=== PATIENT | female | born 1965 | race Asian ===

== ENCOUNTER 2018-01-01 17:05 | Emergency (ER) | payer OTHER, SELFPAY ==
[2018-01-01 17:08] VITALS: BP 111/77; PULSE 82; RESP 16; TEMP 36.5; O2SAT 100; BMI 26.7
--- NOTE | 2018-01-01 17:30 | ED.UPPEXIN ---
HPI - Extremity Injury (Upper) <BISI Merritt - Last Filed: 01/01/18 21:37> General Chief Complaint: Extremity Injury, Upper Stated Complaint: tingling in her fingers,headaches Time Seen by Provider: 01/01/18 17:30 History of Present Illness HPI narrative: 52-year-old female here for complaint of having occasional tingling to bilateral hands and some discomfort of long the knuckles of both hands for the last couple of months. She also reports that she has had. Were she felt like she had some shortness of breath. She denies having any chest pain. She does report having occasional headache for the last 3 months as well she says the headache goes from the base of the skull forward up to the forehead area and feels like a squeezing type of pain. She denies any head trauma. No fevers no chills. No nausea or vomiting. She does report that she has been under increased stress as her mother is moving to the [facility] and that she has been feeling anxious. She denies any relievers or stressors of her symptoms.. Related Data Home Medications Medication Instructions Recorded Confirmed CA PANTOTHENATE/FOLIC ACID/VIT 1 tab PO QDAY #0 12/23/12 (MULTIVITAMIN) Allergies Allergy/AdvReac Type Severity Reaction Status Date / Time From VICODIN Allergy Mild RASH Uncoded 01/01/18 17:21 Review of Systems <BISI Merritt - Last Filed: 01/01/18 21:37> Constitutional Denies chills, Denies fever(s), Denies lethargy and Denies weakness Eyes Denies change in vision, Denies eye discharge, Denies irritation and Denies loss of vision ENT Ears, Nose, Mouth, and Throat: Denies change in voice and Denies sore throat Cardiovascular Denies chest pain, Denies irregular heart rhythm, Denies lightheadedness, Denies palpitations, Reports dyspnea and Denies orthopnea Respiratory Reports dyspnea Gastrointestinal Gastrointestinal: Denies abdominal pain, Denies change in bowel habits, Denies diarrhea, Denies nausea and Denies vomiting Genitourinary Denies hematuria, Denies flank pain, Denies urinary incontinence and Denies urinary urgency Musculoskeletal Comments: Tingling to bilateral hands with erythema across dorsal aspects of MCP joints Integumentary/Breasts Denies pruritus, Denies erythema, Denies rash and Denies wounds Neurologic Denies confusion, Denies loss of vision and Denies weakness Psychiatric Denies anxiety, Denies confusion, Denies depression, Denies homicidal ideation and Denies suicidal ideation Endocrine Denies palpitations Exam <BISI Merritt - Last Filed: 01/01/18 21:37> Initial Vital Signs Initial Vital Signs: Vital Signs Temperature 97.7 F 01/01/18 17:08 Pulse Rate 82 01/01/18 17:08 Respiratory Rate 16 01/01/18 17:08 Blood Pressure 111/77 01/01/18 17:08 Pulse Oximetry 100 01/01/18 17:08 Const General: cooperative and well developed Nutritional Appearance: well nourished Orientation: alert, awake, oriented x3 and not confused [facility] Mouth: oral mucosae normal, oropharynx normal and moist mucous membranes Eyes Conjunctivae: conjunctivae normal Sclera: sclerae normal Pupils: PERRL EOM: EOM intact bilaterally Neck Neck: normal visual inspection, trachea midline, No lymphadenopathy, No midline deformity and No JVD Lymphatic: No lymphedema Resp Effort & Inspection: normal respiratory effort, able to speak in complete sentences, no respiratory distress and no use of accessory muscles Auscultation: clear to auscultation bilaterally, no rales, no rhonchi and no wheezes Cardio Rate: regular rate Rhythm: regular rhythm Heart Sounds: no click, no gallops, no murmurs and no rubs Pulses: normal peripheral pulses Skin General: No jaundice and No petechiae Extrem Other: Dry skin to bilateral hands with erythema over the dorsal aspect of the and CP joints bilaterally. Distal sensation is intact. Full range of motion. Distal pulses are intact. <Gil Akhtar DO - Last Filed: 01/01/18 22:18> Initial Vital Signs Initial Vital Signs: Vital Signs Temperature 97.7 F 01/01/18 17:08 Pulse Rate 82 01/01/18 17:08 Respiratory Rate 16 01/01/18 17:08 Blood Pressure 111/77 01/01/18 17:08 Pulse Oximetry 100 01/01/18 17:08 Course <BISI Merritt - Last Filed: 01/01/18 21:37> Orders Ordered: ED Orders 01/01/18 17:38 EKG-12 Lead Stat 01/01/18 17:44 EKG-12 Lead Stat 01/01/18 18:31 XR chest 1V Stat 01/01/18 18:53 CT head/brain wo con Stat 01/01/18 19:05 Complete Blood Count AUTO DIFF Stat Comprehensive Metabolic Panel Stat Troponin with CK Cardiac Panel Stat Discontinued Medications Acetaminophen (Tylenol) 650 mg PO NOW ONE Stop: 01/01/18 18:42 Last Admin: 01/01/18 18:44 Dose: 650 mg Azithromycin (Zithromax) 1,000 mg PO NOW ONE Stop: 01/01/18 18:25 Last Admin: 01/01/18 18:28 Dose: Ceftriaxone Sodium (Rocephin) 250 mg IM NOW ONE Stop: 01/01/18 18:25 Last Admin: 01/01/18 18:28 Dose: Vital Signs - 8 hr 01/01/18 17:08 01/01/18 20:21 Temperature 97.7 F Pulse Rate 82 78 Respiratory Rate 16 15 Blood Pressure 111/77 Blood Pressure [Right Arm] 121/72 H Pulse Oximetry 100 100 <Gil Akhtar DO - Last Filed: 01/01/18 22:18> Orders Ordered: ED Orders 01/01/18 17:38 EKG-12 Lead Stat 01/01/18 17:44 EKG-12 Lead Stat 01/01/18 18:31 XR chest 1V Stat 01/01/18 18:53 CT head/brain wo con Stat 01/01/18 19:05 Complete Blood Count AUTO DIFF Stat Comprehensive Metabolic Panel Stat Troponin with CK Cardiac Panel Stat Discontinued Medications Acetaminophen (Tylenol) 650 mg PO NOW ONE Stop: 01/01/18 18:42 Last Admin: 01/01/18 18:44 Dose: 650 mg Azithromycin (Zithromax) 1,000 mg PO NOW ONE Stop: 01/01/18 18:25 Last Admin: 01/01/18 18:28 Dose: Ceftriaxone Sodium (Rocephin) 250 mg IM NOW ONE Stop: 01/01/18 18:25 Last Admin: 01/01/18 18:28 Dose: Vital Signs - 8 hr 01/01/18 17:08 01/01/18 20:21 Temperature 97.7 F Pulse Rate 82 78 Respiratory Rate 16 15 Blood Pressure 111/77 Blood Pressure [Right Arm] 121/72 H Pulse Oximetry 100 100 MDM - Extremity Injury (Upper) <BISI Merritt - Last Filed: 01/01/18 21:37> Lab Data Result diagrams: 01/01/18 19:05 01/01/18 19:05 Lab Results 01/01/18 01/01/18 Range/Units 19:05 19:05 WBC 7.3 (4.5-11.0) X10^3/uL RBC 5.02 (4.0-5.2) X10^6/uL Hgb 14.6 (12.0-16.0) g/dL Hct 42.7 (36-46) % MCV 85.2 (80-100) fL MCH 29.0 (26-34) PG MCHC 34.1 (30-36) % RDW 14.1 (11.6-14.8) % Plt Count 339 (150-400) X10^3/uL Neut % (Auto) 50.2 (50-75) % Lymph % (Auto) 36.5 (25-40) % Traverse % (Auto) 9.3 (3-14) % Eos % (Auto) 3.2 (2-4) % Baso % (Auto) 0.8 (0-2) % Neut # (Auto) 3700 (4965-2252) /uL Sodium 145 (137-145) mmol/L Potassium 4.1 (3.4-5.1) mmol/L Chloride 101 (98-107) mmol/L Carbon Dioxide 32 (22-32) mmol/L BUN 13 (7-17) mg/dL Creatinine 0.60 (0.52-1.04) mg/dL Estimated GFR > 60.0 (>60) mL/min BUN/Creatinine Ratio 21.7 (6-22) Glucose 110 H (70-100) mg/dL Calcium 9.7 (8.4-10.2) mg/dL Total Bilirubin 0.7 (0.2-1.3) mg/dL AST 33 (14-36) IU/L ALT 19 (9-52) IU/L Alkaline Phosphatase 67 (38-126) U/L Total Creatine Kinase 92 (30-135) U/L Troponin I < 0.012 (0.01-0.034) ng/mL Total Protein 8.1 (6.3-8.2) g/dL Albumin 4.6 (3.5-5.0) g/dL Globulin 3.5 (1.7-4.1) g/dL Albumin/Globulin Ratio 1.3 (1.0-2.8) Imaging Data Chest x-ray: Radiologist's impression: PROCEDURE: XR CHEST 1V INDICATIONS: Occasional Shortness of breath TECHNIQUE: One view of the chest was acquired. COMPARISON: None. FINDINGS: Surgical changes and devices: None. Lungs and pleura: No pleural effusions or pneumothorax. Lungs are clear. Mediastinum: Mediastinal contours appear normal. Heart size is normal. Bones and chest wall: No suspicious bony lesions. Overlying soft tissues appear unremarkable. Lateral downsloping appearance of the acromion bilaterally IMPRESSION: No acute disease. Dictated by: Timothy Murphy M.D. on 01/01/2018 at 18:59 Approved by: Timtohy Murphy M.D. on 01/01/2018 at 19:00 CT scan - head: Radiologist's impression: PROCEDURE: CT HEAD/BRAIN WO CON INDICATIONS: Headache on and off for the last 2- 3 months TECHNIQUE: Noncontrast 4.5 mm thick angled axial sections acquired from the foramen magnum to the vertex, with coronal and sagittal reformats. For radiation dose reduction, the following was used: automated exposure control, adjustment of mA and/or kV according to patient size. COMPARISON: None. FINDINGS: Image quality: Excellent. CSF spaces: Basal cisterns are patent. No extra-axial fluid collections. Ventricles are normal in size and shape. Brain: No midline shift. No intracranial masses or hemorrhage. Ledezma-white matter interface is normal. Skull and face: Calvarium and visualized facial bones are intact, without suspicious lesions. Sinuses: Visualized sinuses and mastoids are clear. IMPRESSION: No acute intracranial process Dictated by: Timothy Murphy M.D. on 01/01/2018 at 19:56 Approved by: Timothy Murphy M.D. on 01/01/2018 at 19:57 ECG Data Interpretation: EKG shows normal sinus rhythm with no ST elevation or depression. No ectopy. Ventricular rate of 81. P are interval 158. QRS duration of 96. QT of 375 MDM Narrative Medical decision making narrative: EKG shows sinus rhythm with no ST elevation or depression no ectopy. Chest x-ray was obtained was negative for any acute findings. CBC and Chem panel were obtained were unremarkable. Cardiac enzymes were obtained were negative. CT of the head was obtained was also negative for any acute findings. Headache presents as tension headache. Patient description of symptoms that having shortness of breath and tingling in the hands along with tingling in the lips at times presents as hyperventilation. Symptoms are suspect as secondary to anxiousness brought on by increased stress. She is encouraged to follow up with primary care provider for further evaluation and discussion treatment for anxiety. She is encouraged to do gentle range of motion to the neck to help keep muscles lose and ibuprofen for any headaches. She also may use heat to the neck. Lotion to the hands as she has a dry skin dermatitis. She is encouraged to do breathing exercises when she is feeling anxious and starts feeling like she is breathing fast. For any worsening symptoms return to the emergency room. <Gil Akhtar DO - Last Filed: 01/01/18 22:18> Lab Data Lab Results 01/01/18 01/01/18 Range/Units 19:05 19:05 WBC 7.3 (4.5-11.0) X10^3/uL RBC 5.02 (4.0-5.2) X10^6/uL Hgb 14.6 (12.0-16.0) g/dL Hct 42.7 (36-46) % MCV 85.2 (80-100) fL MCH 29.0 (26-34) PG MCHC 34.1 (30-36) % RDW 14.1 (11.6-14.8) % Plt Count 339 (150-400) X10^3/uL Neut % (Auto) 50.2 (50-75) % Lymph % (Auto) 36.5 (25-40) % Traverse % (Auto) 9.3 (3-14) % Eos % (Auto) 3.2 (2-4) % Baso % (Auto) 0.8 (0-2) % Neut # (Auto) 3700 (7044-3378) /uL Sodium 145 (137-145) mmol/L Potassium 4.1 (3.4-5.1) mmol/L Chloride 101 (98-107) mmol/L Carbon Dioxide 32 (22-32) mmol/L BUN 13 (7-17) mg/dL Creatinine 0.60 (0.52-1.04) mg/dL Estimated GFR > 60.0 (>60) mL/min BUN/Creatinine Ratio 21.7 (6-22) Glucose 110 H (70-100) mg/dL Calcium 9.7 (8.4-10.2) mg/dL Total Bilirubin 0.7 (0.2-1.3) mg/dL AST 33 (14-36) IU/L ALT 19 (9-52) IU/L Alkaline Phosphatase 67 (38-126) U/L Total Creatine Kinase 92 (30-135) U/L Troponin I < 0.012 (0.01-0.034) ng/mL Total Protein 8.1 (6.3-8.2) g/dL Albumin 4.6 (3.5-5.0) g/dL Globulin 3.5 (1.7-4.1) g/dL Albumin/Globulin Ratio 1.3 (1.0-2.8) Discharge Plan Departure Patient Disposition: Home, Self-Care Clinical Impression: Acute tension headache, Anxiousness, Dry skin dermatitis Discharge Date/Time: 01/01/18 20:42 Interventions: ED Discharge Assessment Last Done: 01/01/18 20:42 Instructions: Tension Headache Activity Restrictions/Additional Instructions: Laboratory results imaging and EKG were unremarkable today. Headache symptoms presents as tension type headache which can be secondary to anxiety/stress. Tingling of her hands and lips appear to be due to hyperventilation also secondary to anxiousness. Use [id number]-[id number] ibuprofen as needed for any headaches or discomfort. Gentle range of motion to neck to help keep muscles loose to Neck. May also use heat to posterior neck to help with muscle tension. If you are feeling anxious does not feel like her breathing rate is increased and perform relaxation techniques such as breathing exercises. Follow up with her primary care provider for further evaluation and discussion of treatment for anxiety. For any worsening symptoms return to the emergency room. Prescriptions: No Action CA PANTOTHENATE/FOLIC ACID/VIT (MULTIVITAMIN) 1 tab PO QDAY Qty: 0 RF: 0 Referrals: [facility] [Provider Group] Provider,Conversion [Non-Staff] - <Gil Akhtar DO - Last Filed: 01/01/18 22:18> Cosign ED Attending Tenishaature Attestation: I was available for consultation during this patient's emergency department encounter
--- NOTE | 2018-01-01 17:39 | PC.NURSE ---
Patient is under a lot of stress with family concerns and has been experiencing numbness in her hands and had a sharp abd spasm a few days ago and now is having right hand pain. Concerned that she may be having heart problems due to the number of relatives who have heart issues including her parents
--- NOTE | 2018-01-01 18:31 | DI.RAD.S_ITS ---
PROCEDURE: XR CHEST 1V INDICATIONS: Occasional Shortness of breath TECHNIQUE: One view of the chest was acquired. COMPARISON: None. FINDINGS: Surgical changes and devices: None. Lungs and pleura: No pleural effusions or pneumothorax. Lungs are clear. Mediastinum: Mediastinal contours appear normal. Heart size is normal. Bones and chest wall: No suspicious bony lesions. Overlying soft tissues appear unremarkable. Lateral downsloping appearance of the acromion bilaterally IMPRESSION: No acute disease. Dictated by: Timothy Murphy M.D. on 01/01/2018 at 18:59 Approved by: Timothy Murphy M.D. on 01/01/2018 at 19:00
[2018-01-01] MEDS: ACETAMINOPHEN 325 MG TABLET 650 MG PO (18:44)
--- NOTE | 2018-01-01 18:53 | DI.CT.S_ITS ---
PROCEDURE: CT HEAD/BRAIN WO CON INDICATIONS: Headache on and off for the last 2- 3 months TECHNIQUE: Noncontrast 4.5 mm thick angled axial sections acquired from the foramen magnum to the vertex, with coronal and sagittal reformats. For radiation dose reduction, the following was used: automated exposure control, adjustment of mA and/or kV according to patient size. COMPARISON: None. FINDINGS: Image quality: Excellent. CSF spaces: Basal cisterns are patent. No extra-axial fluid collections. Ventricles are normal in size and shape. Brain: No midline shift. No intracranial masses or hemorrhage. Ledezma-white matter interface is normal. Skull and face: Calvarium and visualized facial bones are intact, without suspicious lesions. Sinuses: Visualized sinuses and mastoids are clear. IMPRESSION: No acute intracranial process Dictated by: Timothy Murphy M.D. on 01/01/2018 at 19:56 Approved by: Timothy Murphy M.D. on 01/01/2018 at 19:57
[2018-01-01 19:07] LABS: Add Manual Diff / Slide Review NO; Basophils Percent Auto 0.8 % (0-2); Eosinophils Percent Auto 3.2 % (2-4); Hematocrit 42.7 % (36-46); Hemoglobin 14.6 g/dL (12.0-16.0); Lymphocytes Percent Auto 36.5 % (25-40); Mean Corpuscular HGB Conc 34.1 % (30-36); Mean Corpuscular Volume 85.2 fL (80-100); Monocytes Percent Auto 9.3 % (3-14); Neutrophils Absolute Auto 3700 /uL (3000-5900); Neutrophils Percent Auto 50.2 % (50-75); Platelet Count 339 X10^3/uL (150-400); Red Blood Cell Count 5.02 X10^6/uL (4.0-5.2); Red Cell Distribution Width 14.1 % (11.6-14.8); White Blood Cell Count 7.3 X10^3/uL (4.5-11.0)
[2018-01-01 19:17] LABS: Alanine Aminotransferase 19 IU/L (9-52); Albumin 4.6 g/dL (3.5-5.0); Albumin Globulin Ratio 1.3 (1.0-2.8); Alkaline Phosphatase 67 U/L (38-126); Aspartate Aminotransferase 33 IU/L (14-36); BUN Creatinine Ratio 21.7 (6-22); Bilirubin Total 0.7 mg/dL (0.2-1.3); Blood Urea Nitrogen 13 mg/dL (7-17); Calcium 9.7 mg/dL (8.4-10.2); Carbon Dioxide 32 mmol/L (22-32); Chloride 101 mmol/L (98-107); Creatine Kinase 92 U/L (30-135); Estimated Glomerular Filt Rate > 60.0 mL/min (>60); Globulin 3.5 g/dL (1.7-4.1); Glucose 110 mg/dL (70-100); HEMOLYSIS 17 (0-50); Potassium 4.1 mmol/L (3.4-5.1); Sodium 145 mmol/L (137-145); Total Protein 8.1 g/dL (6.3-8.2)
[2018-01-01 19:39] LABS: Troponin I < 0.012 ng/mL (0.01-0.034)
[2018-01-01 20:21] VITALS: BP 121/72; PULSE 78; RESP 15; O2SAT 100
== END 2018-01-01 20:42 | disposition home or self-care (01) ==
PROVIDERS: Emergency Provider Nurse Practitioner Family
DX: G44.209 Tension-type headache, unspecified, not intractable (principal); F41.9 Anxiety disorder, unspecified; L85.3 Xerosis cutis
CPT/HCPCS: 36415; 70450; 71045; 80053; 82550; 82553; 84484; 85025; 93005; 96372; 99282; 99285

== ENCOUNTER 2018-01-02 14:18 | Emergency (ER) | payer OTHER, SELFPAY ==
[2018-01-02 14:32] VITALS: BP 111/74; PULSE 90; RESP 14; TEMP 36.3; O2SAT 99
--- NOTE | 2018-01-02 14:35 | DI.RAD.S_ITS ---
PROCEDURE: XR FINGER RT MIN 2V INDICATIONS: dista 4thl finger not staying up. TECHNIQUE: AP hand, 2 views of the fourth finger(s) acquired. COMPARISON: None. FINDINGS: Bones: No fractures or dislocations. No suspicious bony lesions. There is mild flexion deformity at the DIP joint of the ring finger Soft tissues: No suspicious soft tissue calcifications. IMPRESSION: Flexion deformity DIP joint ring finger. No associated avulsion fracture. Dictated by: Marck Bryson M.D. on 01/02/2018 at 15:04 Approved by: Marck Bryson M.D. on 01/02/2018 at 15:06
--- NOTE | 2018-01-02 17:54 | ED.UPPEXIN ---
HPI - Extremity Injury (Upper) <BISI Merritt - Last Filed: 01/02/18 22:05> General Chief Complaint: Extremity Injury, Upper Stated Complaint: FINGER PAIN,POSSIBLY BROKEN Time Seen by Provider: 01/02/18 18:06 History of Present Illness HPI narrative: 52-year-old woman here for complaint of pain into her distal right ring finger. She states that she was washing her hair earlier today when she noticed the pain. She also notes at that time that the distal tip of her right ring finger was flexed and was not able to extend. She denies any direct trauma to the finger. She is able to move the finger however she states she is not able to move the distal part of the finger. She denies any other concerns or injuries at this time. Related Data Home Medications Medication Instructions Recorded Confirmed CA PANTOTHENATE/FOLIC ACID/VIT 1 tab PO QDAY #0 12/23/12 (MULTIVITAMIN) Allergies Allergy/AdvReac Type Severity Reaction Status Date / Time acetaminophen [From Vicodin] Allergy Mild Hallucinati Verified 01/02/18 14:34 ng hydrocodone [From Vicodin] Allergy Mild Hallucinati Verified 01/02/18 14:34 ng Review of Systems <BISI Merritt - Last Filed: 01/02/18 22:05> Constitutional Denies chills, Denies fever(s), Denies lethargy and Denies weakness Eyes Denies change in vision, Denies eye discharge, Denies irritation and Denies loss of vision ENT Ears, Nose, Mouth, and Throat: Denies change in voice, Denies neck pain and Denies sore throat Cardiovascular Denies chest pain, Denies irregular heart rhythm, Denies lightheadedness, Denies palpitations, Denies dyspnea, Denies dyspnea on exertion and Denies orthopnea Respiratory Denies cough, Denies dyspnea, Denies dyspnea on exertion and Denies wheezing Gastrointestinal Gastrointestinal: Denies abdominal pain, Denies change in bowel habits, Denies diarrhea, Denies nausea and Denies vomiting Genitourinary Denies hematuria, Denies flank pain, Denies urinary incontinence and Denies urinary urgency Musculoskeletal Denies neck pain Comments: Right ring finger pain Integumentary/Breasts Denies pruritus, Denies erythema, Denies rash and Denies wounds Neurologic Denies confusion, Denies loss of vision and Denies weakness Psychiatric Denies anxiety, Denies confusion, Denies depression, Denies homicidal ideation and Denies suicidal ideation Endocrine Denies palpitations Allergic/Immunologic Denies wheezing Exam <BISI Merritt - Last Filed: 01/02/18 22:05> Initial Vital Signs Initial Vital Signs: Vital Signs Temperature 97.4 F L 01/02/18 14:32 Pulse Rate 90 01/02/18 14:32 Respiratory Rate 14 01/02/18 14:32 Blood Pressure 111/74 01/02/18 14:32 Pulse Oximetry 99 01/02/18 14:32 Const General: cooperative and well developed Nutritional Appearance: well nourished Orientation: alert, awake, oriented x3 and not confused HENMT Mouth: oral mucosae normal and moist mucous membranes Eyes Sclera: sclerae normal Cornea: corneas normal Pupils: PERRL Resp Effort & Inspection: normal respiratory effort, able to speak in complete sentences, no respiratory distress and no use of accessory muscles Auscultation: clear to auscultation bilaterally, no rales, no rhonchi and no wheezes Cardio Rate: regular rate Rhythm: regular rhythm Heart Sounds: no click, no gallops, no murmurs and no rubs Skin General: no rashes or lesions noted, No jaundice and No petechiae Extrem Other: Right ring finger with distal phalanges in flexion approximately 15?. Distal sensation is intact. Distal cap refill is less than 2 sec. Patient has full range of motion with exception of the distal phalanx. No open lesions. <Gil Akhtar DO - Last Filed: 01/03/18 01:29> Initial Vital Signs Initial Vital Signs: Vital Signs Temperature 97.4 F L 01/02/18 14:32 Pulse Rate 90 01/02/18 14:32 Respiratory Rate 14 01/02/18 14:32 Blood Pressure 111/74 01/02/18 14:32 Pulse Oximetry 99 01/02/18 14:32 Course <BISI Merritt - Last Filed: 01/02/18 22:05> Orders Ordered: ED Orders 01/02/18 14:35 XR finger RT min 2V Stat Vital Signs - 8 hr 01/02/18 19:16 Temperature 97.5 F L Pulse Rate 94 H Respiratory Rate 16 Blood Pressure 113/81 H Pulse Oximetry 96 <Gil Akhtar DO - Last Filed: 01/03/18 01:29> Orders Ordered: ED Orders 01/02/18 14:35 XR finger RT min 2V Stat Vital Signs - 8 hr 01/02/18 19:16 Temperature 97.5 F L Pulse Rate 94 H Respiratory Rate 16 Blood Pressure 113/81 H Pulse Oximetry 96 MDM - Extremity Injury (Upper) <BISI Merritt - Last Filed: 01/02/18 22:05> Imaging Data finger: Radiologist's impression: Signed Patient: Clarissa Combs MR#: [id number] : 1965 Acct:[id number] Age/Sex: 52 / F Date of Service: 01/02/18 Loc: ED Accession Number: [id number] Procedure: XR finger RT min 2V Ordering Provider: Luis Lainez PROCEDURE: XR FINGER RT MIN 2V INDICATIONS: dista 4thl finger not staying up. TECHNIQUE: AP hand, 2 views of the fourth finger(s) acquired. COMPARISON: None. FINDINGS: Bones: No fractures or dislocations. No suspicious bony lesions. There is mild flexion deformity at the DIP joint of the ring finger Soft tissues: No suspicious soft tissue calcifications. IMPRESSION: Flexion deformity DIP joint ring finger. No associated avulsion fracture. Dictated by: Marck Bryson M.D. on 01/02/2018 at 15:04 Approved by: Marck Bryson M.D. on 01/02/2018 at 15:[address] [facility] Narrative Medical decision making narrative: X-ray of the right fingers were negative for any fracture or dislocation. Signs and symptoms presents as extensor tendon injury. She is placed in splint for comfort and support. [id number] Tylenol Motrin as needed for any discomfort. She is referred Orthopedics she is to call the office tomorrow morning to schedule follow-up appointment. For any worsening symptoms return to the emergency room. Discharge Plan Departure Patient Disposition: Home, Self-Care Clinical Impression: Injury of tendon of finger Discharge Date/Time: 01/02/18 19:17 Interventions: ED Discharge Assessment Last Done: 01/02/18 19:16 Instructions: DI for Finger Extensor Tendon Injury Activity Restrictions/Additional Instructions: X-ray was obtained and was negative for any dislocation or fracture. Signs and symptoms presents as a tendon injury. You are referred to Orthopedics. Call the number at number provided to schedule follow-up appointment. Use [id number] Tylenol or Motrin as needed for any discomfort. Wear splint for comfort and support. For any worsening symptoms return to the emergency room. Prescriptions: No Action CA PANTOTHENATE/FOLIC ACID/VIT (MULTIVITAMIN) 1 tab PO QDAY Qty: 0 RF: 0 Referrals: Provider,Conversion [Non-Staff] - Eduardo Escalante MD [Physician] - Stand Alone Forms: Work/School Restrictions <Gil Akhtar DO - Last Filed: 01/03/18 01:29> [facility] Attending Tenishaature Attestation: I was available for consultation during this patient's emergency department encounter
[2018-01-02 19:16] VITALS: BP 113/81; PULSE 94; RESP 16; TEMP 36.4; O2SAT 96
== END 2018-01-02 19:17 | disposition home or self-care (01) ==
PROVIDERS: Emergency Provider Nurse Practitioner Family
DX: S69.91XA Unspecified injury of right wrist, hand and finger(s), initial encounter (principal)
CPT/HCPCS: 73140; 99283

== ENCOUNTER → 2018-05-05 11:00 | Outpatient (CLI) | payer OTHER, SELFPAY | DX: Z23 Encounter for immunization (principal) | CPT/HCPCS: 90471; 90686 ==

== ENCOUNTER 2019-03-23 23:34 | Emergency (ER) | payer OTHER, SELFPAY ==
[2019-03-23 23:58] VITALS: BP 139/79; PULSE 66; RESP 16; TEMP 36.4; O2SAT 100; BMI 26.9
[2019-03-24 00:30] VITALS: BP 115/65; PULSE 65; RESP 18; O2SAT 98
[2019-03-24 00:35] VITALS: BP 139/79; PULSE 66; RESP 16; TEMP 36.4; O2SAT 100; BMI 26.9
[2019-03-24 00:54] LABS: Add Manual Diff / Slide Review NO; Basophils Absolute Auto 0 /uL (0-100); Basophils Percent Auto 0.5 % (0-2); Eosinophils Absolute Auto 200 /uL (0-450); Eosinophils Percent Auto 2.8 % (2-4); Hematocrit 41.5 % (36-46); Hemoglobin 13.8 g/dL (12.0-16.0); Lymphocytes Absolute Auto 3100 /uL (1100-4500); Lymphocytes Percent Auto 41.7 % (25-40); Mean Corpuscular HGB Conc 33.2 % (30-36); Mean Corpuscular Hemoglobin 28.5 PG (26-34); Monocytes Absolute Auto 700 /uL (0-900); Monocytes Percent Auto 9.4 % (3-14); Neutrophils Absolute Auto 3400 /uL (1500-7000); Neutrophils Percent Auto 45.6 % (50-75); Platelet Count 367 X10^3/uL (150-400); Red Blood Cell Count 4.83 X10^6/uL (4.0-5.2); Red Cell Distribution Width 13.7 % (11.6-14.8); White Blood Cell Count 7.5 X10^3/uL (4.5-11.0)
--- NOTE | 2019-03-24 01:01 | ED_ITS ---
HPI - Neuro Symptoms/Deficit General Chief Complaint: Neuro Symptoms/Deficit Stated Complaint: Tingling in shoulders and legs Time Seen by Provider: 03/24/19 01:00 Source: patient Mode of arrival: ambulatory Limitations: no limitations History of Present Illness HPI Narrative: Pleasant 53-year-old female comes in with complaint of tingling in both of her arms and hands. Patient states also in her feet. Patient denies any, vision changes or difficulty with speech, she denies any weakness or difficulty with movement. She states started on Tuesday. Just feels like a pins and needle tingling sensation. She denies any numbness. She states she has a history of carpal tunnel in her hands and feet. She has not had any other neurologic symptoms. 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 Otherwise she denies any other medical problems. Denies tobacco, occasional alcohol and no illicit. On Anticoagulants: No Related Data Home Medications Medication Instructions Recorded Confirmed CA PANTOTHENATE/FOLIC ACID/VIT 1 tab PO QDAY #0 12/23/12 (MULTIVITAMIN) Allergies Allergy/AdvReac Type Severity Reaction Status Date / Time acetaminophen [From Vicodin] Allergy Mild Hallucinati Verified 01/02/18 14:34 ng hydrocodone [From Vicodin] Allergy Mild Hallucinati Verified 01/02/18 14:34 ng Review of Systems Review of Systems ROS Unobtainable: All systems reviewed & are unremarkable except as noted in HPI and below PFSH Social History Smoking Status: Never smoker Social History Smoking Status: Never smoker Exam Narrative Exam Narrative: GEN: well nourished, well appearing female, alert and oriented x 3, patient appears to be in no acute distress. HEENT: Atraumatic, pupils are equal round reactive to light, extraocular movements are intact, nares are clear. Throat is clear without any exudates, erythema, tonsillar enlargement or uvular deviation HEART: Regular rate and rhythm without murmur, clicks, rubs. No carotid bruits, pulses are equal in upper and lower extremities LUNGS:Lungs clear to auscultation, no wheezes, rales, crackles, chest moves symmetrically ABD:bowel sounds normal, soft, non-tender, no guarding, rebound, rigidity, no masses noted, no hepatosplenomegaly :No CVA tenderness MSCL: Non-tender, no muscle atrophy, muscles strength 5/5 upper and lower ext remities, full range of motion. NEURO:CN 2-12 intact, sensation normal, reflexes 2/4 upper and lower extremities. finger nose finger test normal, heel vernon test normal Initial Vital Signs Initial Vital Signs: Vital Signs Temperature 97.6 F 03/23/19 23:58 Pulse Rate 66 03/23/19 23:58 Respiratory Rate 16 03/23/19 23:58 Blood Pressure 139/79 03/23/19 23:58 Pulse Oximetry 100 03/23/19 23:58 Scores NIH Stroke Scale Level of Conciousness: Alert, keenly responsive Ask month/age: Answers both questions correctly. Open/close eyes, close hand: Performs both tasks correctly Best gaze horizontal: Normal Visual sinclair: No visual loss Facial palsy: Normal symetrical movement Left arm drift: No drift for full 10 sec Right arm drift: No drift for full 10 sec Left leg drift: No drift for full 10 sec Right leg drift: No drift for full 10 sec Limb ataxia: Absent Sensory on face/arms/legs: Normal, no sensory loss Best language: No aphasia, normal Dysarthria: Normal Extinction or inattention: No abnormality Total NIH Stroke scale score: 0 Course Orders Ordered: ED Orders 03/23/19 23:00 EKG-12 Lead Stat 03/24/19 00:10 Complete Blood Count AUTO DIFF Stat Comprehensive Metabolic Panel Stat Vital Signs Vital signs: Vital Signs - 8 hr 03/23/19 23:58 03/24/19 00:30 03/24/19 00:35 Temperature 97.6 F 97.6 F Pulse Rate 66 65 66 Respiratory Rate 16 18 16 Blood Pressure 139/79 139/79 Blood Pressure [Left Arm] 115/65 Pulse Oximetry 100 98 100 03/24/19 01:21 Temperature Pulse Rate 63 Respiratory Rate 14 Blood Pressure Blood Pressure [Left Arm] 117/67 Pulse Oximetry 100 MDM - Neuro Symptoms/Deficit Lab Data Attestation: I reviewed the patient's lab results. Result diagrams: 03/24/19 00:10 03/24/19 00:10 Labs: Lab Results 03/24/19 03/24/19 Range/Units 00:10 00:10 WBC 7.5 (4.5-11.0) X10^3/uL RBC 4.83 (4.0-5.2) X10^6/uL Hgb 13.8 (12.0-16.0) g/dL Hct 41.5 (36-46) % MCV 86.0 (80-100) fL MCH 28.5 (26-34) PG MCHC 33.2 (30-36) % RDW 13.7 (11.6-14.8) % Plt Count 367 (150-400) X10^3/uL Neut % (Auto) 45.6 L (50-75) % Lymph % (Auto) 41.7 H (25-40) % Parker % (Auto) 9.4 (3-14) % Eos % (Auto) 2.8 (2-4) % Baso % (Auto) 0.5 (0-2) % Neut # (Auto) 3400 (7521-2795) /uL Lymph # (Auto) 3100 (7073-5382) /uL Parker # (Auto) 700 (0-900) /uL Eos # (Auto) 200 (0-450) /uL Baso # (Auto) 0 (0-100) /uL Sodium 139 (137-145) mmol/L Potassium 3.7 (3.4-5.1) mmol/L Chloride 103 (98-107) mmol/L Carbon Dioxide 27 (22-32) mmol/L BUN 15 (7-17) mg/dL Creatinine 0.80 (0.52-1.04) mg/dL Estimated GFR > 60.0 (>60) mL/min BUN/Creatinine Ratio 18.8 (6-22) Glucose 102 H (70-100) mg/dL Calcium 9.4 (8.4-10.2) mg/dL Total Bilirubin 0.6 (0.2-1.3) mg/dL AST 28 (14-36) IU/L ALT < 6 L (9-52) IU/L Alkaline Phosphatase 81 (38-126) U/L Total Protein 8.0 (6.3-8.2) g/dL Albumin 4.6 (3.5-5.0) g/dL Globulin 3.4 (1.7-4.1) g/dL Albumin/Globulin Ratio 1.4 (1.0-2.8) Point of Care Testing Glucose POC 101 ECG Data Attestation: I personally reviewed and interpreted this ECG as follows: Interpretation: Sinus rhythm rate of 70 P are 150, QRS 88 QTC of [address] elevation or depression. MDM Narrative Medical decision making narrative: Patient does not have any acute changes on physical exam that are suspicious for stroke, CVA, glucose is normal so neuropathy secondary to diabetes is unlikely although possible other neuropathic causes. Patient does not have any other neurologic changes consistent or lee spicious for, patient has normal electrolytes and was asked to follow up with her primary care for further evaluation. Signs and symptoms and reasons to return emergently were discussed. Discharge Plan Departure Patient Disposition: Home Clinical Impression: Tingling in extremities Discharge Date/Time: 03/24/19 01:32 Instructions: DI for Numbness/tingling Activity Restrictions/Additional Instructions: Follow-up with your primary care in the next week for recheck. Continue your home medications as prescribed. Return to the emergency department for new weakness, loss of sensation, inabi lity usual extremities, new difficulties speech, passing, pain in your extremities, swelling in your extremities or other new or concerning symptoms. Prescriptions: No Action CA PANTOTHENATE/FOLIC ACID/VIT (MULTIVITAMIN) 1 tab PO QDAY Qty: 0 RF: 0
[2019-03-24 01:04] LABS: Albumin 4.6 g/dL (3.5-5.0); Albumin Globulin Ratio 1.4 (1.0-2.8); Alkaline Phosphatase 81 U/L (38-126); Aspartate Aminotransferase 28 IU/L (14-36); BUN Creatinine Ratio 18.8 (6-22); Bilirubin Total 0.6 mg/dL (0.2-1.3); Blood Urea Nitrogen 15 mg/dL (7-17); Calcium 9.4 mg/dL (8.4-10.2); Carbon Dioxide 27 mmol/L (22-32); Chloride 103 mmol/L (98-107); Estimated Glomerular Filt Rate > 60.0 mL/min (>60); Globulin 3.4 g/dL (1.7-4.1); Glucose 102 mg/dL (70-100); HEMOLYSIS < 15 (0-50); Potassium 3.7 mmol/L (3.4-5.1); Sodium 139 mmol/L (137-145)
[2019-03-24 01:05] LABS: Alanine Aminotransferase < 6 IU/L (9-52)
[2019-03-24 01:21] VITALS: BP 117/67; PULSE 63; RESP 14; O2SAT 100
== END 2019-03-24 01:32 | disposition home or self-care (01) ==
PROVIDERS: Emergency Provider Emergency Medicine
DX: R20.2 Paresthesia of skin (principal)
CPT/HCPCS: 36415; 80053; 82962; 85025; 93005; 93041; 99283; 99284

== ENCOUNTER → 2019-04-26 15:14 | Outpatient (CLI) | payer OTHER, SELFPAY | DX: Z23 Encounter for immunization (principal) | CPT/HCPCS: 90471; 90686 ==

== ENCOUNTER → 2020-04-29 | Outpatient (CLI) | payer OTHER, SELFPAY | PROVIDERS: Referring Provider Internal Medicine; Visit Provider Internal Medicine | DX: Z23 Encounter for immunization (principal) | CPT/HCPCS: 90471; 90686 ==

== ENCOUNTER → 2020-07-30 13:40 | Outpatient (CLI) | payer OTHER, SELFPAY ==
[2020-07-30] MEDS: COVID-19 VACC(MODERNA-1)/PF 100 MCG/0.5 ML VIAL IM (13:48)
== END ==
PROVIDERS: Visit Provider Internal Medicine
DX: Z23 Encounter for immunization (principal)
CPT/HCPCS: 0011A; 91301

== ENCOUNTER → 2020-08-28 13:28 | Outpatient (CLI) | payer OTHER, SELFPAY ==
[2020-08-28] MEDS: COVID-19 VACC #2, MRNA(MOD) 100 MCG/0.5 ML VIAL IM (13:38)
== END ==
PROVIDERS: Visit Provider Internal Medicine
DX: Z23 Encounter for immunization (principal)
CPT/HCPCS: 0012A; 91301

== ENCOUNTER 2021-01-26 16:05 | Emergency (ER) | payer OTHER, SELFPAY ==
[2021-01-26 16:10] VITALS: BP 136/76; PULSE 93; RESP 16; TEMP 36.3; O2SAT 99; BMI 40.4
[2021-01-26] MEDS: predniSONE 20 MG TABLET 40 MG PO (17:44)
[2021-01-26] MEDS: hydrOXYzine pamoate 25 MG CAPSULE 50 MG PO (17:44)
--- NOTE | 2021-01-26 18:07 | PC.NURSE ---
generalized red and dry rash over top of arms and on chest. No s/s of infection.
--- NOTE | 2021-01-26 18:57 | ED_ITS ---
HPI - Skin/Abscess/Foreign Bdy <CYNTHIA Sow - Last Filed: 01/26/21 19:00> General Chief complaint: Skin/Abscess/Foreign Body Stated complaint: rash/bumps Time Seen by Provider: 01/26/21 17:13 Source: patient Mode of arrival: Ambulatory Limitations: no limitations History of Present Illness HPI narrative: The patient is a delightful 55-year-old female nonsmoker who denies pertinent medical history presents with a chief complaint of rash in bilateral hands. She states it started about a month ago when she was gardening, she thinks she was exposed to poison romelia for something similar. She had blisters peer on the dorsums of bilateral hands. She states it got better, then keeps getting worse. She was exposed to the sun when he got incredibly irritated. She states it is very itchy, slightly painful, denies any fevers nausea vomiting or diarrhea. She is occasionally using Benadryl ointment, has not taken anything oral for pain or itch. Denies any chest pain or shortness of breath. Related Data Home Medications Medication Instructions Recorded Confirmed CA PANTOTHENATE/FOLIC ACID/VIT 1 tab PO QDAY #0 12/23/12 (MULTIVITAMIN) Previous Rx's Medication Instructions Recorded hydroxyzine HCl 50 mg tablet 50 mg PO TID PRN #20 tab 01/26/21 prednisone 20 mg tablet 40 mg PO DAILY 4 Days #8 tab 01/26/21 Allergies Allergy/AdvReac Type Severity Reaction Status Date / Time acetaminophen [From Vicodin] Allergy Mild Hallucinati Verified 01/02/18 14:34 ng hydrocodone [From Vicodin] Allergy Mild Hallucinati Verified 01/02/18 14:34 ng Review of Systems <CYNTHIA Sow - Last Filed: 01/26/21 19:00> Review of Systems Narrative: GENERAL: Denies chills, fatigue, malaise, fever, sweats. HEENT: Denies sinus pain, ear pain, sore throat, difficulty swallowing, dizziness. RESPIRATORY: Denies dyspnea, cough, wheezing, hemoptysis, sputum. CARDIOVASCULAR: Denies chest pain, palpitations, orthopnea, edema, GASTROINTESTINAL: Denies nausea, vomiting, abdominal pain, diarrhea, constipation, melena. : Denies dysuria, frequency, incontinence, hematuria, urinary retention. MUSCULOSKELETAL: denies weakness, joint pain, or bony pain SKIN: See HPI NEUROLOGIC: Denies weakness, headache, numbness, change in speech, confusion, seizures, incoordination. PSYCHIATRIC: No concerning psychosocial issues. 12 point review of systems is negative except for those stated above Patient History <CYNTHIA Sow - Last Filed: 01/26/21 19:00> Social History Smoking Status: Never smoker Smoking Status: Never smoker Substance Use Type: does not use Exam <CYNTHIA Sow - Last Filed: 01/26/21 19:00> Narrative Exam Narrative: GENERAL: This is a well-nourished, well-developed patient, in no acute distress HEAD: Atraumatic. Normocephalic. No temporal or scalp tenderness. EYES: Pupils equal round and reactive. Extraocular motions intact. No scleral icterus. No injection or drainage. ENT: Nose without bleeding, purulent drainage or septal hematoma. Wearing a mask Airway patent. NECK: Trachea midline. No JVD or lymphadenopathy. Supple, nontender, no meningeal signs. CARDIOVASCULAR: Regular rate and rhythm RESPIRATORY: No cough. No increased respiratory effort. No accessory muscle use. EXTREMITIES: Bilateral hands with papular rash, multiple scratch molina noted on bilateral dorsum of hands. Appears very dry, slightly eczematous. Extends slightly up over bilateral wrist, not visible on rest of arms. No linear erythema, no drainage noted. BACK: Nontender without deformity or crepitance. No flank tenderness. NEURO: AOx3. SKIN: See extremity exam Initial Vital Signs Initial Vital Signs: Vital Signs Temperature 97.3 F L 01/26/21 16:10 Pulse Rate 93 H 01/26/21 16:10 Respiratory Rate 16 01/26/21 16:10 Blood Pressure 136/76 01/26/21 16:10 Pulse Oximetry 99 01/26/21 16:10 <Lorena Wilson DO - Last Filed: 01/26/21 19:25> Initial Vital Signs Initial Vital Signs: Vital Signs Temperature 97.3 F L 01/26/21 16:10 Pulse Rate 93 H 01/26/21 16:10 Respiratory Rate 16 01/26/21 16:10 Blood Pressure 136/76 01/26/21 16:10 Pulse Oximetry 99 01/26/21 16:10 Course <CYNTHIA Sow - Last Filed: 01/26/21 19:00> Orders Ordered: Discontinued Medications Hydroxyzine Pamoate (Hydroxyzine Pamoate 25 Mg Capsule) 50 mg PO NOW ONE Stop: 01/26/21 17:33 Last Admin: 01/26/21 17:44 Dose: 50 mg Documented by: CARLOS Prednisone (Prednisone 20 Mg Tablet) 40 mg PO NOW ONE Stop: 01/26/21 17:33 Last Admin: 01/26/21 17:44 Dose: 40 mg Documented by: CARLOS Vital Signs Vital signs: Vital Signs - 8 hr 01/26/21 16:10 Temperature 97.3 F L Pulse Rate 93 H Respiratory Rate 16 Blood Pressure 136/76 Pulse Oximetry 99 <Lorena Wilson DO - Last Filed: 01/26/21 19:25> Orders Ordered: Discontinued Medications Hydroxyzine Pamoate (Hydroxyzine Pamoate 25 Mg Capsule) 50 mg PO NOW ONE Stop: 01/26/21 17:33 Last Admin: 01/26/21 17:44 Dose: 50 mg Documented by: CARLOS Prednisone (Prednisone 20 Mg Tablet) 40 mg PO NOW ONE Stop: 01/26/21 17:33 Last Admin: 01/26/21 17:44 Dose: 40 mg Documented by: CARLOS Vital Signs Vital signs: Vital Signs - 8 hr 01/26/21 16:10 Temperature 97.3 F L Pulse Rate 93 H Respiratory Rate 16 Blood Pressure 136/76 Pulse Oximetry 99 MDM - Skin/Abscess/Foreign Bdy <CYNTHIA Sow - Last Filed: 01/26/21 19:00> MDM Narrative Medical decision making narrative: The patient is a 55-year-old female who presents with a chief complaint of a rash on bilateral hands ongoing for the past week. She has tried eyso-mds-hitovey measures such as Benadryl cream. Appears to be a contact dermatitis. Will place a burst of steroids, hydroxyzine for itch, discussed using Eucerin or Aquaphor for hydration. Discussed keeping it clean and dry, not submerging in dirty water and follow up with primary care provider. Discussed coming back to the ER for acute concerns. Patient has no questions or concerns upon discharge, states understanding of return precautions as well as follow-up care. Discharge Plan Departure Patient Disposition: Home Clinical Impression: Rash Instructions: Poison Rom[place], Poison [place], Poison [place], DI for Contact Dermatitis, DI for Rash Activity Restrictions/Additional Instructions: Thank you for trusting us with your care today. As discussed, I sent 2 prescriptions to [facility] in [place]. This includes hydroxyzine for itching as well as prednisone, which should help inflammation and itching. Please try to keep your rash hydrated with Eucerin or Aquaphor from a tub. This will help hydrate your skin, which will help relieve your inch. Please do not take Benadryl at the same time as hydroxyzine, they are both antihistamines and cannot be combined. Please do not submerge into dirty water as this can increase your chance of infection. Please come back to the emergency department for any acute concerns. Prescriptions: New prednisone 20 mg tablet 40 mg PO DAILY 4 Days Qty: 8 RF: 0 hydroxyzine HCl 50 mg tablet 50 mg PO TID PRN (Reason: itching) Qty: 20 RF: 0 No Action CA PANTOTHENATE/FOLIC ACID/VIT (MULTIVITAMIN) 1 tab PO QDAY Qty: 0 RF: 0 Referrals: [facility] [Provider Group] <Lorena Wilson, - Last Filed: 01/26/21 19:25> Cosign ED Attending Tenishaature Attestation: I was immediately available in the department for consultation. Documentation has been reviewed. I agree with assessment and plan.
== END 2021-01-26 18:09 | disposition home or self-care (01) ==
PROVIDERS: Emergency Provider Nurse Practitioner Family
DX: R21 Rash and other nonspecific skin eruption (principal)
CPT/HCPCS: 99283

== ENCOUNTER → 2021-05-21 17:42 | Outpatient (CLI) | payer OTHER, SELFPAY | PROVIDERS: Referring Provider Internal Medicine; Visit Provider Internal Medicine | DX: Z23 Encounter for immunization (principal) | CPT/HCPCS: 90471; 90686 ==

== ENCOUNTER → 2021-05-29 12:43 | Outpatient (CLI) | payer OTHER, SELFPAY ==
[2021-05-29] MEDS: COVID-19 VACC #3, MRNA(MOD) 50 MCG/0.25 ML VIAL IM (12:47)
== END ==
PROVIDERS: Visit Provider Internal Medicine
DX: Z23 Encounter for immunization (principal)
CPT/HCPCS: 0013A; 91301

== ENCOUNTER → 2022-04-23 15:31 | Outpatient (CLI) | payer OTHER, SELFPAY | PROVIDERS: Referring Provider Internal Medicine; Visit Provider Internal Medicine | DX: Z23 Encounter for immunization (principal) | CPT/HCPCS: 90471; 90686 ==

== ENCOUNTER 2023-02-16 14:09 | Emergency (ER) | payer OTHER, SELFPAY ==
[2023-02-16 14:26] VITALS: BP 131/74; PULSE 88; RESP 16; TEMP 36.4; O2SAT 98; BMI 28.3
--- NOTE | 2023-02-16 14:31 | DI.RAD.S_ITS ---
PROCEDURE: XR FINGER RT MIN 2V INDICATIONS: redness/pain, blackberry martinez thorn wound TECHNIQUE: AP hand, 2 views of the 2nd finger(s) acquired. COMPARISON: [facility], , XR FINGER RT MIN 2V, 01/02/2018, 14:15. FINDINGS: Bones: No fractures or dislocations. No suspicious bony lesions. No bony erosion. Soft tissues: No suspicious soft tissue calcifications. IMPRESSION: 1. No acute osseous abnormality. Dictated by: Jaelyn Penaloza M.D. on 02/16/2023 at 15:17 Approved by: Jaelyn Penaloza M.D. on 02/16/2023 at 15:18
--- NOTE | 2023-02-16 14:43 | PC.NURSE ---
punctured right pointer finger over knuckle in garden over the weekend. Increase pain and swelling noted, reports drained out small amount of fluid last night. Denies fevers or chills. Took tylenol last night.
--- NOTE | 2023-02-16 14:52 | ED.SKABFB ---
HPI - Skin/Abscess/Foreign Bdy <BISI Hanna - Last Filed: 02/16/23 16:14> General Chief complaint: Skin/Abscess/Foreign Body Stated complaint: pain in right index finger Time Seen by Provider: 02/16/23 14:44 Source: patient Mode of arrival: Ambulatory Limitations: no limitations History of Present Illness HPI narrative: This is a 57-year-old female presents to the emergency department complaining a wound to her left index finger on palmar aspect at the PIPJoint which she has worsened over last 24 hours, states that she may have gotten puncture wound from the yd and over the last 2 days it has become extremely painful, swollen, red, she states that she popped it last night and it was pus filled. She was concerned that there is a foreign body. Related Data Home Medications Medication Instructions Recorded Confirmed CA PANTOTHENATE/FOLIC ACID/VIT 1 tab PO QDAY ##0 12/23/12 (MULTIVITAMIN) Previous Rx's Medication Instructions Recorded hydroxyzine HCl 50 mg tablet 50 mg PO TID PRN itching #20 tabs 01/26/21 cephalexin 500 mg capsule 500 mg PO QID 7 days #28 caps 02/16/23 doxycycline hyclate 100 mg capsule 100 mg PO BID 7 days #14 caps 02/16/23 mupirocin 2 % topical ointment 1 applic topical BID 7 days #22 02/16/23 grams tramadol 50 mg tablet 50 mg PO BID PRN pain #10 tabs 02/16/23 Allergies Allergy/AdvReac Type Severity Reaction Status Date / Time acetaminophen [From Vicodin] Allergy Mild Hallucinati Verified 01/02/18 14:34 ng hydrocodone [From Vicodin] Allergy Mild Hallucinati Verified 01/02/18 14:34 ng Review of Systems <BISI Hanna - Last Filed: 02/16/23 16:14> Review of Systems ROS Unobtainable: All systems reviewed & are unremarkable except as noted in HPI and below Patient History <BISI Hanna - Last Filed: 02/16/23 16:14> Social History Smoking Status: Never smoker Smoking Status: Never smoker Substance Use Type: does not use Exam <BISI Hanna - Last Filed: 02/16/23 16:14> Initial Vital Signs Initial Vital Signs: Vital Signs Temperature 97.6 F 02/16/23 14:26 Pulse Rate 88 02/16/23 14:26 Respiratory Rate 16 02/16/23 14:26 Blood Pressure 131/74 02/16/23 14:26 Pulse Oximetry 98 02/16/23 14:26 Oxygen Delivery Method Room Air 02/16/23 14:26 Extrem Right upper extremity: normal capillary refill, edema and hand Details: abnormal to inspection Details: joint swelling, normal capillary refill, neuromotor exam normal, neurosensory exam normal, tendon exam normal, warmth, swelling Location: of the 2nd digit and puncture wound <Devin Lawler MD - Last Filed: 02/22/23 12:06> Initial Vital Signs Initial Vital Signs: Vital Signs Temperature 97.6 F 02/16/23 14:26 Pulse Rate 88 02/16/23 14:26 Respiratory Rate 16 02/16/23 14:26 Blood Pressure 131/74 02/16/23 14:26 Pulse Oximetry 98 02/16/23 14:26 Oxygen Delivery Method Room Air 02/16/23 14:26 Course <BISI Hanna - Last Filed: 02/16/23 16:14> Orders Ordered: Discontinued Medications Cephalexin HCl (Cephalexin 250 Mg Capsule) 500 mg PO NOW ONE Stop: 02/16/23 14:51 Last Admin: 02/16/23 15:00 Dose: 500 mg Documented By: CLAY Doxycycline Hyclate (Doxycycline Hyclate 100 Mg Tablet) 100 mg PO NOW ONE Stop: 02/16/23 14:52 Last Admin: 02/16/23 15:01 Dose: 100 mg Documented By: CLAY Ketorolac Tromethamine (Ketorolac 10 Mg Tablet) 10 mg PO NOW ONE Stop: 02/16/23 14:51 Last Admin: 02/16/23 15:00 Dose: 10 mg Documented By: CLAY Trimethoprim/Sulfamethoxazole (Trimeth/Sulfa 160/800 (Ds) Tablet) 1 tab PO NOW ONE Stop: 02/16/23 14:51 Last Admin: 02/16/23 14:56 Dose: Not Given Documented By: CLAY Vital Signs Vital signs: Vital Signs - 8 hr 02/16/23 14:26 Temperature 97.6 F Pulse Rate 88 Respiratory Rate 16 Blood Pressure 131/74 Pulse Oximetry 98 Oxygen Delivery Method Room Air <Devin Lawler MD - Last Filed: 02/22/23 12:06> Orders Ordered: Discontinued Medications Cephalexin HCl (Cephalexin 250 Mg Capsule) 500 mg PO NOW ONE Stop: 02/16/23 14:51 Last Admin: 02/16/23 15:00 Dose: 500 mg Documented By: [facility] Doxycycline Hyclate (Doxycycline Hyclate 100 Mg Tablet) 100 mg PO NOW ONE Stop: 02/16/23 14:52 Last Admin: 02/16/23 15:01 Dose: 100 mg Documented By: [facility] Ketorolac Tromethamine (Ketorolac 10 Mg Tablet) 10 mg PO NOW ONE Stop: 02/16/23 14:51 Last Admin: 02/16/23 15:00 Dose: 10 mg Documented By: [facility] Trimethoprim/Sulfamethoxazole (Trimeth/Sulfa 160/800 (Ds) Tablet) 1 tab PO NOW ONE Stop: 02/16/23 14:51 Last Admin: 02/16/23 14:56 Dose: Not Given Documented By: [facility] Vital Signs Vital signs: Vital Signs - 8 hr 02/16/23 14:26 Temperature 97.6 F Pulse Rate 88 Respiratory Rate 16 Blood Pressure 131/74 Pulse Oximetry 98 Oxygen Delivery Method Room Air MDM - Skin/Abscess/Foreign Bdy <Thania Chau PERSONNEL ASSISTANT - Last Filed: 02/16/23 16:14> Imaging Data Extremity x-ray #1: Radiologist's Impression: PROCEDURE:? XR FINGER RT MIN 2V ? INDICATIONS:? redness/pain, blackberry martinez thorn wound ? TECHNIQUE:? AP hand, 2 views of the 2nd finger(s) acquired.? ? COMPARISON:? [facility], , XR FINGER RT MIN 2V, 01/02/2018, 14:15. ? FINDINGS:? ? Bones:? No fractures or dislocations.? No suspicious bony lesions.? No bony erosion.? ? Soft tissues:? No suspicious soft tissue calcifications.? ? IMPRESSION:? ? 1. No acute osseous abnormality. ? Dictated by: Jaelyn Penaloza M.D. on 02/16/2023 at 15:17 ? ? Approved by: Jaelyn Penaloza M.D. on 02/16/2023 at 15:18 ? MDM Narrative Medical decision making narrative: Chief Complaint: Finger pain Multiple etiologies for patient's complaint considered including, but not limited to: foreign body, cellulitis, flexor tenosynovitis, tendon injury, necrotizing skin infection I have independently reviewed the patient's vital signs and nursing notes as well as prior records if available. Plan: x-ray Course of Care: patient's last tetanus was within 10 years, I do not appreciate any crepitus, foreign body, there is erythema and edema present atPIP joint of the left 2nd digit. Patient states that she does not have any medical problems, is not anticoagulated, denies history of allergy to medications, states that hydrocodone is too strong for her but she has tolerated tramadol in the past. X-ray does not show foreign body, shows soft tissue edema, patient has normal flexion and extension, flexion is mildly limited due to edema intact without sensory or motor deficit. patient is willing to try tramadol for pain, states that she does not tolerate hydrocodone because it is too strong. Social considerations that may affect disposition: none Questions are addressed and there is agreement with the plan and for follow-up. I consulted with the ED attending physician Dr. Lawler as needed for higher level of care considerations and they were available for discussion and recommendations regarding plan of care and diagnostic testing. Patient is appropriate for outpatient management. Discharge Plan Departure Patient Disposition: Home Clinical Impression: Puncture wound of finger Qualifiers: Encounter type: initial encounter Qualified Code(s): S61.239A - Puncture wound without foreign body of unspecified finger without damage to nail, initial encounter Cellulitis Qualifiers: Site of cellulitis: extremity Site of cellulitis of extremity: finger Laterality: right Qualified Code(s): L03.011 - Cellulitis of right finger Instructions: DI for Wound Infection Activity Restrictions/Additional Instructions: *You have been diagnosed with A wound infection. This can progress to a tendon sheath infection causing limitations to your mobility and if you can fully extend or flex her finger. Please avoid this by coming in if you notice pain becoming worse after initiation of antibiotics, worsening swelling, or redness and streaking up your hand. Please take both of these antibiotics, use a topical antibiotic ointment that has been prescribed for you and covered with a Band-Aid. Please elevate, ice as needed, take pain pill as you need one, come back if you have worsening. The x-ray does not show any foreign body however it is possible there is a small splinter or something in there that does not show up on x-ray. Please pay attention to see if anything surfaces in your wound, okay to use warm and cool compresses to promote healing antibiotic use. *What to do: *Please continue to take your regular medications as directed. [x ] New medication prescriptions sent to your pharmacy: [ [facility]] [ ] New medication written as a paper prescription [ ] No new medications given *Please call and schedule follow up with your primary care provider in 2-3 days, at least for an update. Let them know you were seen in the Emergency Department for the above problem. We will electronically transmit a record of today's note if your PCP or specialist is in our system. *If you do not have a primary care provider please contact [phone] to establish care with one of the [facility] primary care providers. *Return to the Emergency Department for worsening symptoms, inability to keep liquids down, fever greater than 101F, chills, or other concerning symptom. Prescriptions: New tramadol 50 mg tablet 50 mg PO BID PRN (Reason: pain) Qty: 10 0RF cephalexin 500 mg capsule 500 mg PO QID 7 Days Qty: 28 0RF doxycycline hyclate 100 mg capsule 100 mg PO BID 7 Days Qty: 14 0RF mupirocin 2 % ointment 1 applic topical BID 7 Days Qty: 22 0RF No Action CA PANTOTHENATE/FOLIC ACID/VIT (MULTIVITAMIN) 1 tab PO QDAY Qty: 0 hydroxyzine HCl 50 mg tablet 50 mg PO TID PRN (Reason: itching) Qty: 20 0RF Stand Alone Forms: Patient Portal/API <Devin Lawler MD - Last Filed: 02/22/23 12:06> Cosign ED Attending Cosignature Attestation: I was immediately available in the department for consultation. ?This documentation has been reviewed and I agree with assessment and plan. Supervised by Devin Lawler MD
[2023-02-16] MEDS: KETOROLAC 10 MG TABLET PO (15:00)
[2023-02-16] MEDS: cephALEXin 250 MG CAPSULE 500 MG PO (15:00)
[2023-02-16] MEDS: DOXYCYCLINE HYCLATE 100 MG TABLET PO (15:01)
[2023-02-16 15:16] VITALS: BP 129/78; PULSE 68; O2SAT 99
== END 2023-02-16 15:18 | disposition home or self-care (01) ==
PROVIDERS: Emergency Provider Nurse Practitioner Critical Care Medicine
DX: L03.011 Cellulitis of right finger (principal); S61.230A Puncture wound without foreign body of right index finger without damage to nail, initial encounter
CPT/HCPCS: 73140; 99283

== ENCOUNTER 2023-04-25 09:29 | Emergency (ER) | payer OTHER, SELFPAY ==
--- NOTE | 2023-04-25 09:32 | DI.RAD.S_ITS ---
PROCEDURE: XR CHEST 1V INDICATIONS: chest pain TECHNIQUE: One view of the chest was acquired. COMPARISON: [facility], , XR CHEST 1V, 01/01/2018, 18:36. [facility], , CHEST 2 VIEW, 01/27/2012, 8:01. FINDINGS: Surgical changes and devices: Left breast clip. Lungs and pleura: Lungs are clear. No pleural effusions or pneumothorax. Mediastinum: Mediastinal contours appear normal. Heart size is normal. Bones and chest wall: No suspicious bony lesions. Overlying soft tissues appear unremarkable. IMPRESSION: No acute cardiopulmonary abnormality. Dictated by: Asher Muniz M.D. on 04/25/2023 at 10:03 Approved by: Asher Muniz M.D. on 04/25/2023 at 10:04
[2023-04-25 09:54] LABS: Add Manual Diff / Slide Review NO; Basophils Absolute Auto 100 /uL (0-100); Basophils Percent Auto 0.8 % (0-2); Eosinophils Absolute Auto 200 /uL (0-450); Eosinophils Percent Auto 2.1 % (2-4); Hematocrit 42.6 % (36-46); Hemoglobin 14.5 g/dL (12.0-16.0); Lymphocytes Absolute Auto 3300 /uL (1100-4500); Lymphocytes Percent Auto 41.8 % (25-40); Mean Corpuscular HGB Conc 33.9 % (30-36); Mean Corpuscular Volume 85.4 fL (80-100); Monocytes Absolute Auto 600 /uL (0-900); Monocytes Percent Auto 7.2 % (3-14); Neutrophils Absolute Auto 3800 /uL (1500-7000); Neutrophils Percent Auto 48.1 % (50-75); Platelet Count 353 X10^3/uL (150-400); Red Blood Cell Count 4.99 X10^6/uL (4.0-5.2); Red Cell Distribution Width 14.2 % (11.6-14.8); White Blood Cell Count 7.8 X10^3/uL (4.5-11.0)
[2023-04-25 09:55] VITALS: BP 136/76; PULSE 67; RESP 18; TEMP 36.7; O2SAT 97; BMI 27.3
--- NOTE | 2023-04-25 09:56 | ED.GENADULT ---
HPI - General Adult General Chief complaint: Chest Pain Stated complaint: sharp pain in back Time Seen by Provider: 04/25/23 09:32 Source: patient Mode of arrival: Ambulatory Limitations: no limitations History of Present Illness HPI narrative: 57-year-old female who is here for evaluation of upper back discomfort. States that she was just walking at her job when she had a fairly sudden onset of the discomfort. No chest pain. The pain is still there but has improved somewhat. No shortness of breath. It does get worse when you touch it. Does not radiate anywhere. No nausea or vomiting. Related Data Home Medications Medication Instructions Recorded Confirmed CA PANTOTHENATE/FOLIC ACID/VIT 1 tab PO QDAY ##0 12/23/12 (MULTIVITAMIN) Previous Rx's Medication Instructions Recorded hydroxyzine HCl 50 mg tablet 50 mg PO TID PRN itching #20 tabs 01/26/21 tramadol 50 mg tablet 50 mg PO BID PRN pain #10 tabs 02/16/23 Allergies Allergy/AdvReac Type Severity Reaction Status Date / Time acetaminophen [From Vicodin] Allergy Mild Hallucinati Verified 01/02/18 14:34 ng hydrocodone [From Vicodin] Allergy Mild Hallucinati Verified 01/02/18 14:34 ng Review of Systems Constitutional Constitutional: Reports system reviewed and no additional complaints, except as documented Cardiovascular Cardiovascular: Reports system reviewed and no additional complaints, except as documented Respiratory Respiratory: Reports system reviewed and no additional complaints, except as documented Gastrointestinal Gastrointestinal: Reports system reviewed and no additional complaints, except as documented Integumentary/Breasts Skin/Breast: Reports system reviewed and no additional complaints, except as documented Neurologic Neurologic: Reports system reviewed and no additional complaints, except as documented Hematologic/Lymphatic On Anticoagulants: No Patient History Social History Smoking Status: Never smoker Smoking Status: Never smoker Substance Use Type: does not use Exam Initial Vital Signs Initial Vital Signs: Vital Signs Temperature 98.1 F 04/25/23 09:55 Pulse Rate 67 04/25/23 09:55 Respiratory Rate 18 04/25/23 09:55 Blood Pressure 136/76 04/25/23 09:55 Pulse Oximetry 97 04/25/23 09:55 Oxygen Delivery Method Room Air 04/25/23 09:55 HENPR Head: normal to inspection and normocephalic Resp Effort & Inspection: normal respiratory effort Auscultation: clear to auscultation bilaterally Cardio Rate: regular rate Rhythm: regular rhythm Back/Spine/Pelvis Other: Paraspinal midthoracic back discomfort. Skin General: no rashes or lesions noted Neuro General: patient alert, patient awake and moves all extremities Extrem General: No edema Course Orders Ordered: ED Orders 04/25/23 09:32 XR chest 1V Stat EKG-12 Lead Stat 04/25/23 09:45 Complete Blood Count AUTO DIFF Stat Comprehensive Metabolic Panel Stat Lipase Stat Magnesium Stat PTT Partial Thromboplastin Benjie Stat Prothrombin Time INR Stat Troponin & CK Cardiac Panel Stat 04/25/23 10:00 COVID19 -Nasal RAPID Stat 04/25/23 11:50 Troponin & CK Cardiac Panel Stat Discontinued Medications Aspirin (Aspirin 81 Mg Chew Tab) 324 mg PO NOW ONE Stop: 04/25/23 09:33 Last Admin: 04/25/23 10:13 Dose: Not Given Documented By: RAHAT Vital Signs Vital signs: Vital Signs - 8 hr 04/25/23 09:55 04/25/23 11:35 Temperature 98.1 F Pulse Rate 67 56 L Respiratory Rate 18 14 Blood Pressure 136/76 136/76 Pulse Oximetry 97 99 Oxygen Delivery Method Room Air Room Air Medical Decision Making Lab Data Lab results reviewed: Yes I reviewed the patient's lab results. 04/25/23 09:45 04/25/23 09:45 Labs: Lab Results 04/25/23 04/25/23 04/25/23 Range/Units 09:45 09:45 09:45 WBC 7.8 (4.5-11.0) X10^3/uL RBC 4.99 (4.0-5.2) X10^6/uL Hgb 14.5 (12.0-16.0) g/dL Hct 42.6 (36-46) % MCV 85.4 (80-100) fL MCH 29.0 (26-34) PG MCHC 33.9 (30-36) % RDW 14.2 (11.6-14.8) % Plt Count 353 (150-400) X10^3/uL Neut % (Auto) 48.1 L (50-75) % Lymph % (Auto) 41.8 H (25-40) % Mcdowell % (Auto) 7.2 (3-14) % Eos % (Auto) 2.1 (2-4) % Baso % (Auto) 0.8 (0-2) % Neut # (Auto) 3800 (4281-0959) /uL Lymph # (Auto) 3300 (3705-9224) /uL Mcdowell # (Auto) 600 (0-900) /uL Eos # (Auto) 200 (0-450) /uL Baso # (Auto) 100 (0-100) /uL PT 11.3 (10.1-12.7) SECONDS INR 1.0 (0.9-1.3) APTT 41 H (26-36) SECONDS Sodium 139 (137-145) mmol/L Potassium 3.9 (3.4-5.1) mmol/L Chloride 102 (98-107) mmol/L Carbon Dioxide 27 (22-32) mmol/L BUN 12 (7-17) mg/dL Creatinine 0.67 (0.52-1.04) mg/dL Estimated GFR > 60 (>60) mL/min BUN/Creatinine Ratio 17.9 (6-22) Glucose 96 (70-100) mg/dL Calcium 10.1 (8.4-10.2) mg/dL Magnesium 2.1 (1.6-2.3) mg/dL Total Bilirubin 0.9 (0.2-1.3) mg/dL AST 33 (14-36) IU/L ALT 17 (<35) IU/L Alkaline Phosphatase 61 (38-126) U/L Total Creatine Kinase 97 (30-135) U/L Troponin I < 0.012 (0.01-0.034) ng/mL Total Protein 9.0 H (6.3-8.2) g/dL Albumin 5.0 (3.5-5.0) g/dL Globulin 4.0 (1.7-4.1) g/dL Albumin/Globulin Ratio 1.3 (1.0-2.8) Lipase 171 (23-300) U/L SARS-CoV-2 (PCR) (Negative) 04/25/23 04/25/23 Range/Units 10:00 11:50 WBC (4.5-11.0) X10^3/uL RBC (4.0-5.2) X10^6/uL Hgb (12.0-16.0) g/dL Hct (36-46) % MCV (80-100) fL MCH (26-34) PG MCHC (30-36) % RDW (11.6-14.8) % Plt Count (150-400) X10^3/uL Neut % (Auto) (50-75) % Lymph % (Auto) (25-40) % Mcdowell % (Auto) (3-14) % Eos % (Auto) (2-4) % Baso % (Auto) (0-2) % Neut # (Auto) (5757-7709) /uL Lymph # (Auto) (4086-9804) /uL Mcdowell # (Auto) (0-900) /uL Eos # (Auto) (0-450) /uL Baso # (Auto) (0-100) /uL PT (10.1-12.7) SECONDS INR (0.9-1.3) APTT (26-36) SECONDS Sodium (137-145) mmol/L Potassium (3.4-5.1) mmol/L Chloride (98-107) mmol/L Carbon Dioxide (22-32) mmol/L BUN (7-17) mg/dL Creatinine (0.52-1.04) mg/dL Estimated GFR (>60) mL/min BUN/Creatinine Ratio (6-22) Glucose (70-100) mg/dL Calcium (8.4-10.2) mg/dL Magnesium (1.6-2.3) mg/dL Total Bilirubin (0.2-1.3) mg/dL AST (14-36) IU/L ALT (<35) IU/L Alkaline Phosphatase (38-126) U/L Total Creatine Kinase 83 (30-135) U/L Troponin I < 0.012 (0.01-0.034) ng/mL Total Protein (6.3-8.2) g/dL Albumin (3.5-5.0) g/dL Globulin (1.7-4.1) g/dL Albumin/Globulin Ratio (1.0-2.8) Lipase (23-300) U/L SARS-CoV-2 (PCR) Negative (Negative) Imaging Data Chest x-ray: Radiologist's Impression: PROCEDURE:? XR CHEST 1V ? INDICATIONS:? chest pain ? TECHNIQUE:? One view of the chest was acquired.? ? COMPARISON:? [facility], CR, XR CHEST 1V, 01/01/2018, 18:36.? [facility], CR, CHEST 2 VIEW, 01/27/2012, 8:01. ? FINDINGS:? ? Surgical changes and devices:? Left breast clip.? ? Lungs and pleura:? Lungs are clear.? No pleural effusions or pneumothorax.? ? Mediastinum:? Mediastinal contours appear normal.? Heart size is normal.? ? Bones and chest wall:? No suspicious bony lesions.? Overlying soft tissues appear unremarkable.? ? ? IMPRESSION:? No acute cardiopulmonary abnormality. ECG Data Attestation: I personally reviewed and interpreted this ECG as follows: Interpretation: Sinus rhythm Ventricular rate is 64 Normal axis Normal QRS Normal QTC No ST T wave changes MDM Narrative Medical decision making narrative: Patient does have reproducible thoracic back discomfort. Troponins are negative x2. EKG is unremarkable. Low suspicion that this is cardiopulmonary etiology. More suspicion that this is musculoskeletal. Low suspicion for intra-abdominal pathology caught in the back pain such as gallbladder. Low suspicion for dissection. Will discharge patient home with return precautions. She expressed understanding and agreement with plan. Discharge Plan Departure Patient Disposition: Home Clinical Impression: Acute thoracic back pain Activity Restrictions/Additional Instructions: Your workup here in the emergency department is very reassuring that everything is okay with your heart and lungs. The fact that we could touch your back and reproduce the pain is very indicative of the muscles in your back causing the symptoms. You can try heat/ice and Tylenol and ibuprofen if needed. Return to the emergency department for new or worsening symptoms. Prescriptions: No Action CA PANTOTHENATE/FOLIC ACID/VIT (MULTIVITAMIN) 1 tab PO QDAY Qty: 0 tramadol 50 mg tablet 50 mg PO BID PRN (Reason: pain) Qty: 10 0RF hydroxyzine HCl 50 mg tablet 50 mg PO TID PRN (Reason: itching) Qty: 20 0RF Stand Alone Forms: Patient Portal/API
[2023-04-25 10:02] LABS: Prothrombin Time 11.3 SECONDS (10.1-12.7)
[2023-04-25 10:05] LABS: PTT Partial Thromboplastin Tim 41 SECONDS (26-36)
[2023-04-25 10:07] LABS: Alanine Aminotransferase 17 IU/L (<35); Albumin Globulin Ratio 1.3 (1.0-2.8); Alkaline Phosphatase 61 U/L (38-126); Aspartate Aminotransferase 33 IU/L (14-36); BUN Creatinine Ratio 17.9 (6-22); Bilirubin Total 0.9 mg/dL (0.2-1.3); Blood Urea Nitrogen 12 mg/dL (7-17); Calcium 10.1 mg/dL (8.4-10.2); Carbon Dioxide 27 mmol/L (22-32); Chloride 102 mmol/L (98-107); Creatine Kinase 97 U/L (30-135); Estimated Glomerular Filt Rate > 60 mL/min (>60); Glucose 96 mg/dL (70-100); HEMOLYSIS 16 (0-50); Lipase 171 U/L (23-300); Magnesium 2.1 mg/dL (1.6-2.3); Potassium 3.9 mmol/L (3.4-5.1); Sodium 139 mmol/L (137-145)
[2023-04-25 10:19] LABS: Troponin I < 0.012 ng/mL (0.01-0.034)
--- NOTE | 2023-04-25 10:25 | PC.NURSE ---
Pt ambulate to bathroom
[2023-04-25 10:27] LABS: COVID19 -Nasal RAPID Negative (Negative)
[2023-04-25 11:35] VITALS: BP 136/76; PULSE 56; RESP 14; O2SAT 99
[2023-04-25 12:19] LABS: Creatine Kinase 83 U/L (30-135)
[2023-04-25 12:32] LABS: Troponin I < 0.012 ng/mL (0.01-0.034)
[2023-04-25 12:48] VITALS: BP 112/58; PULSE 61; RESP 16; O2SAT 99
== END 2023-04-25 12:50 | disposition home or self-care (01) ==
PROVIDERS: Emergency Provider Emergency Medicine
DX: M54.6 Pain in thoracic spine (principal); R07.9 Chest pain, unspecified; Z20.822 Contact with and (suspected) exposure to COVID-19
CPT/HCPCS: 36415; 71045; 80053; 82550; 83690; 83735; 84484; 85025; 85610; 85730; 87635; 93005; 99284; C9803

== ENCOUNTER 2024-02-04 20:11 | Emergency (ER) | payer OTHER, SELFPAY ==
[2024-02-04 20:24] VITALS: BP 122/71; PULSE 85; RESP 16; TEMP 36.9; O2SAT 98; BMI 26.9
--- NOTE | 2024-02-04 21:29 | ED_ITS ---
HPI - Animal Bite General Chief Complaint: Animal Bite Stated Complaint: bee sting Time Seen by Provider: 02/04/24 20:43 Source: patient Mode of arrival: Family Vehicle History of Present Illness HPI narrative: 58-year-old female presents for red, swollen area on left-hand. Patient was outside gardening when she was stung by a bee. She t noticed some gradually spreading redness of her index finger and the top of her hand. She was con cerned that there may be an underlying infection. Related Data Home Medications Medication Instructions Recorded Confirmed CA PANTOTHENATE/FOLIC ACID/VIT 1 tab PO QDAY ##0 12/23/12 (MULTIVITAMIN) Previous Rx's Medication Instructions Recorded hydroxyzine HCl 50 mg tablet 50 mg PO TID PRN itching #20 tabs 01/26/21 tramadol 50 mg tablet 50 mg PO BID PRN pain #10 tabs 02/16/23 cephalexin 500 mg capsule 500 mg PO QID 5 days #20 caps 02/04/24 Allergies Allergy/AdvReac Type Severity Reaction Status Date / Time acetaminophen [From Vicodin] Allergy Mild Hallucinati Verified 01/02/18 14:34 ng hydrocodone [From Vicodin] Allergy Mild Hallucinati Verified 01/02/18 14:34 ng Patient History Social History Smoking Status: Never smoker Smoking Status: Never smoker Substance Use Type: does not use Exam Initial Vital Signs Initial Vital Signs: Vital Signs Temperature 98.4 F 02/04/24 20:24 Pulse Rate 85 02/04/24 20:24 Respiratory Rate 16 02/04/24 20:24 Blood Pressure 122/71 02/04/24 20:24 Pulse Oximetry 98 02/04/24 20:24 Oxygen Delivery Method Room Air 02/04/24 20:24 Const: Awake, alert, no acute distress, nontoxic appearing MSK: No deformity, soft tissue swelling distal dorsum of left hand Skin: Warm, Dry, non circumferential erythema of left index finger and distal dorsum of left-hand, no significant warmth or fluctuance Neuro: AO x3, CN II-XII grossly intact, moves all extremities Course Vital Signs Vital signs: Vital Signs - 8 hr 02/04/24 20:24 Temperature 98.4 F Pulse Rate 85 Respiratory Rate 16 Blood Pressure 122/71 Pulse Oximetry 98 Oxygen Delivery Method Room Air MDM - Animal Bite MDM Narrative Medical decision making narrative: Bee sting to left index finger. Minimal erythema of finger. Patient was full range of motion of all of her digits, no concern for flexor tenosynovitis. There is no excessive warmth or fluctuance to suggest true cellulitis, I suspect that this is a localized reaction from the bee sting. Since it was the weekend and the hand is involved a ?just in case? prescription of antibiotics sent to pharmacy. Patient counseled to take Benadryl before going to bed at night. If she notices improvement with the Benadryl then she can defer antibiotics, however if she was not notice improvement or her redness worsens then she may start the antibiotic. Discharge Plan Departure Patient Disposition: Home Clinical Impression: Bee sting Instructions: DI for Insect Bites and Stings Activity Restrictions/Additional Instructions: The area of your hand appears to be a localized reaction to the bee sting. At this time I have low suspicion for cellulitis, but just in case because of the weekend an antibiotic prescription has been sent to the pharmacy. Take 50 mg of Benadryl tonight before bed, if you notice improvement in the morning then you likely will not need antibiotics, but if it does not improve then you may order picker/assembler the prescription and start taking it as prescribed. Prescriptions: New cephalexin 500 mg capsule 500 mg PO QID 5 Days Qty: 20 0RF No Action CA PANTOTHENATE/FOLIC ACID/VIT (MULTIVITAMIN) 1 tab PO QDAY Qty: 0 tramadol 50 mg tablet 50 mg PO BID PRN (Reason: pain) Qty: 10 0RF hydroxyzine HCl 50 mg tablet 50 mg PO TID PRN (Reason: itching) Qty: 20 0RF Referrals: Bindu Venegas PA-C [Primary Care Provider] - Stand Alone Forms: Patient Portal/API
[2024-02-04 21:42] VITALS: BP 122/76; PULSE 74; RESP 16; TEMP 36.5; O2SAT 98
== END 2024-02-04 21:44 | disposition home or self-care (01) ==
PROVIDERS: Emergency Provider Emergency Medicine; PCP Physician Assistant
DX: T63.441A Toxic effect of venom of bees, accidental (unintentional), initial encounter (principal)
CPT/HCPCS: 99281; 99283

== ENCOUNTER → 2024-05-28 15:24 | Outpatient (CLI) | payer OTHER, SELFPAY | PROVIDERS: PCP Physician Assistant; Referring Provider Internal Medicine; Visit Provider Internal Medicine | DX: Z23 Encounter for immunization (principal) | CPT/HCPCS: 90471; 90656 ==